=== PATIENT | male | born 1955 | race African-American/Black ===

== ENCOUNTER 2020-10-02 14:38 | Emergency (ER) | payer SELFPAY ==
[~2020-10-02] VITALS: Ht 177.8 cm; Wt 70.3 kg
[2020-10-02 14:49] VITALS: BP 128/72
--- NOTE | 2020-10-02 15:12 | NUR ---
Patient given written and verbal discharge instructions. Patient verbalizes understanding of instructions. Patient is ambulatory with steady gait. Refuses offer of jail placement. Patient given list of available shelters in surrounding area.
== END 2020-10-02 15:18 | disposition home or self-care (01) ==
LOC: ER 14:41
DX: M54.6 Pain in thoracic spine (principal); F43.10 Post-traumatic stress disorder, unspecified; W01.0XXA Fall on same level from slipping, tripping and stumbling without subsequent striking against object, initial encounter; Y93.89 Activity, other specified; Y92.481 Parking lot as the place of occurrence of the external cause; Y99.8 Other external cause status

== ENCOUNTER 2020-10-04 03:52 | Emergency (ER) | payer SELFPAY ==
[~2020-10-04] VITALS: Ht 172.7 cm; Wt 83.9 kg
[2020-10-04 03:55] VITALS: BP 119/64
== END 2020-10-04 04:20 | disposition left against medical advice (07) ==
LOC: ER 03:56
DX: G89.29 Other chronic pain (principal); M54.5 Low back pain; R45.1 Restlessness and agitation; Z53.20 Procedure and treatment not carried out because of patient's decision for unspecified reasons

== ENCOUNTER 2020-11-11 16:16 | Emergency (ER) | payer MEDICAID ==
[~2020-11-11] VITALS: Ht 167.6 cm; Wt 91.6 kg
--- NOTE | 2020-11-11 16:36 | NUR ---
michelle, from [facility] in front of the [employer] will put him on [id number]. On room air, breathing evenly and unlabored. Kept comfortable, will continue to monitor accordingly. Sitter at bedside for constant monitoring.
--- NOTE | 2020-11-11 17:05 | NUR ---
URINE SPECIMEN OBTAINED AND SENT TO LAB.
--- NOTE | 2020-11-11 17:10 | NUR ---
ER PHLEB AT BEDSIDE FOR BLOOD DRAW.
[2020-11-11 17:11] LABS: BASOPHILS % (AUTO) 0.3 % (0.0-2.0); EOSINOPHILS % (AUTO) 1.1 % (0.0-6.0); HEMATOCRIT 29 % (39-51); HEMOGLOBIN 9.2 g/dL (13.5-17.5); LYMPHOCYTES # (AUTO) 1.1 K/uL (0.8-4.8); LYMPHOCYTES % (AUTO) 16.7 % (20.0-44.0); MEAN CORPUSCULAR HGB CONC 31 g/dl (31.0-36.0); MEAN CORPUSCULAR VOLUME 80 fL (80-96); MONOCYTES # (AUTO) 0.6 K/uL (0.1-1.30); MONOCYTES % (AUTO) 9.1 % (2.0-12.0); NEUTROPHILS % (AUTO) 72.8 % (43.0-81.0); PLATELET COUNT (AUTO) 354 K/uL (150-450); RED BLOOD CELL COUNT(AUTO) 3.67 MIL/uL (4.5-6.0); WHITE BLOOD COUNT (AUTO) 6.9 K/uL (4.3-11.0)
[2020-11-11] MEDS ORDERED: HALOPERIDOL LACTATE INJ 5 MG/ML VIAL ONE (17:11)
[2020-11-11] MEDS ORDERED: LORAZEPAM INJ 2 MG/ML VIAL ONE (17:12)
[2020-11-11] MEDS ORDERED: diphenhydrAMINE HCL 50 MG/ML VIAL ONE (17:17)
[2020-11-11 17:18] LABS: BILIRUBIN,URINE NEGATIVE (NEGATIVE); COLOR,URINE YELLOW (YELLOW); LEUKOCYTE ESTERASE ,URINE NEGATIVE (NEGATIVE); NITRITE, URINE NEGATIVE (NEGATIVE); PROTEIN,URINE NEGATIVE (NEGATIVE); UGLUCOSE NEGATIVE (NEGATIVE); UROBILINOGEN,URINE 0.2 EU/dL (0.2)
[2020-11-11 17:24] LABS: BACTERIA,URINE Few /HPF (None Seen); RBC,URINE 21-50 /HPF (0-2); SQUAMOUS EPITHELIAL CELL,UR Few /HPF (None Seen); WBC,URINE 0-2 /HPF (0-3)
[2020-11-11] MEDS ORDERED: diphenhydrAMINE HCL 50 MG/ML VIAL IM ONE (17:30)
[2020-11-11] MEDS ORDERED: HALOPERIDOL LACTATE INJ 5 MG/ML VIAL IM ONE (17:30)
[2020-11-11] MEDS ORDERED: LORAZEPAM INJ 2 MG/ML VIAL IM ONE (17:30)
[2020-11-11 17:42] LABS: ALANINE AMINOTRANSFERASE 31 U/L (12-78); ALBUMIN 2.9 g/dL (3.4-5.0); ALKALINE PHOSPHATASE 69 U/L (46-116); ASPARTATE AMINOTRANSFERASE 22 U/L (15-37); BILIRUBIN,DIRECT 0.1 mg/dL (0.0-0.2); BILIRUBIN,TOTAL 0.2 mg/dL (0.2-1.0); CALCIUM, SERUM 7.8 mg/dL (8.5-10.1); CARBON DIOXIDE 28 mmol/L (21-32); CHLORIDE 108 mmol/L (98-107); CREATININE 0.9 mg/dL (0.6-1.3); GLUCOSE 110 mg/dL (74-106); SODIUM SERUM 142 mmol/L (136-145); TOTAL PROTEIN, SERUM 6.8 g/dL (6.4-8.2); UREA NITROGEN, BLOOD 18 mg/dL (7-18)
[2020-11-11 17:48] LABS: ACETAMINOPHEN < 10 ug/ml (10-30); ALCOHOL, BLOOD < 3 mg/dL (0-0)
--- NOTE | 2020-11-11 19:30 | NUR ---
RECEIVED REPORT FOR JULIO. PATIENT IN NO ACUTE DISTRESS. VSS. WILL CONTINUE TO MONITOR.
--- NOTE | 2020-11-12 | NUR ---
PATIENT IN BED SLEEPING EASY TO AROUSE. NO ACUTE DISTRESS NOTED.
--- NOTE | 2020-11-12 05:00 | NUR ---
PATIENT PROVIDE PO FLUIDS TOLERATING WELL. VSS. WILL CONTINUE TO MONITOR.
--- NOTE | 2020-11-12 10:15 | NUR ---
CALLED CLAUDIA VERDIN MSG.
--- NOTE | 2020-11-12 12:43 | NUR ---
CALLED CLAUDIA [phone] SHE WILL COME TO SPEAK WITH PT.
[2020-11-12 14:23] VITALS: BP 127/77
--- NOTE | 2020-11-12 14:23 | NUR ---
Patient discharged to home in stable condition. Written and verbal after care instructions given. Patient verbalizes understanding of instruction.
== END 2020-11-12 14:23 | disposition home or self-care (01) ==
LOC: ER 16:19
DX: F23 Brief psychotic disorder (principal); F43.10 Post-traumatic stress disorder, unspecified; F17.200 Nicotine dependence, unspecified, uncomplicated; Z59.0 Homelessness
CPT/HCPCS: 36415; 80048; 80076; 80143; 80307; 80320; 81001; 85025; 96372 ×2; 99285; J1200; J1630; J2060; G0480